=== PATIENT | male | born 1975 | race Caucasian/White ===

== ENCOUNTER 2023-10-11 14:21 | Emergency (ER) | payer MEDICAID ==
[~2023-10-11] VITALS: Ht 170.2 cm; Wt 78.0 kg
[2023-10-11] MEDS ORDERED: KETOROLAC TROMETHAMINE 15 MG/ML VIAL ONE ×2 (16:22→19:02)
[2023-10-11] MEDS ORDERED: ONDANSETRON HCL/PF 4 MG/2 ML VIAL ONE (16:22)
[2023-10-11] MEDS: IV NS 0.9% 1,000 ML BAG IV ONE (16:30)
[2023-10-11] MEDS: ONDANSETRON HCL/PF 4 MG/2 ML VIAL IVP ONE (16:30)
[2023-10-11] MEDS: KETOROLAC TROMETHAMINE 15 MG/ML VIAL IV ONE ×2 (16:30→19:07)
[2023-10-11 16:44] LABS: APPEARANCE,URINE CLEAR (CLEAR); BILIRUBIN,URINE NEGATIVE (NEGATIVE); BLOOD, URINE NEGATIVE Ery/uL (NEGATIVE); COLOR,URINE YELLOW (YELLOW); KETONES,URINE NEGATIVE (NEGATIVE); LEUKOCYTE ESTERASE ,URINE NEGATIVE (NEGATIVE); NITRITE, URINE NEGATIVE (NEGATIVE); PH,URINE 5.5 (5.0-8.0); PROTEIN,URINE NEGATIVE (NEGATIVE); UGLUCOSE NEGATIVE (NEGATIVE); UROBILINOGEN,URINE 0.2 EU/dL (0.2)
[2023-10-11 17:11] LABS: EOSINOPHILS # (AUTO) 0.1 K/uL (0.0-0.7); EOSINOPHILS % (AUTO) 0.9 % (0.0-6.0); HEMATOCRIT 46 % (39-51); HEMOGLOBIN 15.8 g/dL (13.5-17.5); LYMPHOCYTES # (AUTO) 1.6 K/uL (0.8-4.8); LYMPHOCYTES % (AUTO) 18.2 % (20.0-44.0); MEAN CORPUSCULAR HEMOGLOBIN 30 PG (26.0-33.0); MEAN CORPUSCULAR HGB CONC 34 g/dl (31.0-36.0); MEAN CORPUSCULAR VOLUME 88 fL (80-96); MONOCYTES # (AUTO) 0.7 K/uL (0.1-1.30); MONOCYTES % (AUTO) 7.4 % (2.0-12.0); NEUTROPHILS # (AUTO) 6.6 K/uL (1.8-8.9); NEUTROPHILS % (AUTO) 73.5 % (43.0-81.0); PLATELET COUNT (AUTO) 272 K/uL (150-450); RED BLOOD CELL COUNT(AUTO) 5.23 MIL/uL (4.5-6.0); RED CELL DISTRIBUTION WIDTH 13.8 % (11.5-15.0)
[2023-10-11 17:24] LABS: POTASSIUM 3.9 mmol/L (3.5-5.1)
[2023-10-11 18:57] LABS: ALBUMIN 4.3 g/dL (3.4-5.0); BILIRUBIN,DIRECT 0.1 mg/dL (0.0-0.2); BILIRUBIN,TOTAL 0.5 mg/dL (0.2-1.0); CALCIUM, SERUM 9.4 mg/dL (8.5-10.1); TOTAL PROTEIN, SERUM 7.7 g/dL (6.4-8.2)
[2023-10-11] MEDS ORDERED: TAMS-12 PO (19:15)
[2023-10-11] MEDS ORDERED: ONDA4TAB5 PO (19:15)
[2023-10-11] MEDS ORDERED: IBUP-1957 PO (19:15)
[2023-10-11 19:27] VITALS: BP 148/81; TEMP 97.8; O2SAT 100
== END 2023-10-11 19:27 | disposition home or self-care (01) ==
LOC: ER 14:21
DX: N20.0 Calculus of kidney (principal); R11.0 Nausea; R10.32 Left lower quadrant pain
CPT/HCPCS: 99284; 96374; 96361; 96375; 96376; 85025; 80048; 83690; 80076; 81003; 36415; J2405; J7030; J1885 ×2